=== PATIENT | male | born 1990 | race Caucasian/White ===

== ENCOUNTER 2016-10-19 18:48 | Emergency (ER) | payer SELFPAY ==
--- NOTE | 2016-10-19 19:00 | NUR ---
NO ANSWER IN ER LOBBY
--- NOTE | 2016-10-19 19:28 | NUR ---
PATIENT LEFT WITHOUT BEING SEEN BY DR. DOUGLAS. NO FURTHER CARE PROVIDED FOR PATIENT.
== END 2016-10-19 19:28 | disposition left against medical advice (07) ==
LOC: MED 18:48
DX: M79.673 Pain in unspecified foot (principal); Z53.21 Procedure and treatment not carried out due to patient leaving prior to being seen by health care provider

== ENCOUNTER 2016-10-19 20:17 | Emergency (ER) | payer SELFPAY ==
[~2016-10-19] VITALS: Ht 172.7 cm; Wt 77.6 kg
[2016-10-19 20:30] VITALS: BP 118/75
--- NOTE | 2016-10-19 21:32 | NUR ---
PT TAKEN TO OF2
--- NOTE | 2016-10-19 21:59 | NUR ---
Dr. Trujillo evaluating patient
--- NOTE | 2016-10-19 22:06 | NUR ---
PT TAKEN TO BED 7
[2016-10-19] MEDS ORDERED: LIDOCAINE 1% 500 MG/50 ML VIAL INJ ONE (22:10)
--- NOTE | 2016-10-19 22:11 | NUR ---
PT IS 26/M BIB SELF TO ED WITH C/O RT INGROWN TOE NAIL FOR 25 DAYS, WITH ON AND OFF PAIN AND REDNESS.PT STATES NO MED HX . DENIES N/V/D; SKIN IS WARM/DRY; AAOX4 WITH EVEN AND STEADY GAIT; LUNGS CLEAR BL; HR EVEN AND REGULAR; PT DENIES ANY FEVER, CP, SOB, OR COUGH AT THIS TIME; PATIENT STATES PAIN OF 10/10 AT THIS TIME; VSS; PATIENT POSITIONED FOR COMFORT; HOB ELEVATED; BEDRAILS UP X2; BED DOWN. ER MD MADE AWARE OF PT STATUS.
[2016-10-19 22:40] VITALS: BP 123/75
== END 2016-10-19 22:40 | disposition home or self-care (01) ==
LOC: MED 20:17
DX: L60.0 Ingrowing nail (principal)
CPT/HCPCS: 99283; J2001

== ENCOUNTER 2016-12-07 10:40 | Emergency (ER) | payer MEDICAID ==
[~2016-12-07] VITALS: Ht 172.7 cm; Wt 76.2 kg
[2016-12-07 10:50] VITALS: BP 124/67
--- NOTE | 2016-12-07 11:03 | NUR ---
Patient ambulated to bed 5. RN evaluating patient at bedside.
--- NOTE | 2016-12-07 11:06 | NUR ---
PATIENT PRESENTS TO ED WITH C/O SPIDER BITE; NO PAIN/BITE MISSY . PT STATES HE SAW A SPIDER IN HIS BAG;BUT AND KILLED IT BUT NOT SURE IF HE WAS BITTEN. DENIES N/V/D; SKIN IS PINK/WARM/DRY; AAOX4 WITH EVEN AND STEADY GAIT; LUNGS CLEAR BL; HR EVEN AND REGULAR; PT DENIES ANY FEVER, CP, SOB, OR COUGH AT THIS TIME; PATIENT STATES PAIN OF 0/10 AT THIS TIME; PATIENT POSITIONED FOR COMFORT; HOB ELEVATED; BEDRAILS UP X2; BED DOWN. ER MD NOTIFIED;
--- NOTE | 2016-12-07 11:07 | NUR ---
RICARDO CULLEN AT BEDSIDE.
[2016-12-07 11:17] VITALS: BP 124/67
--- NOTE | 2016-12-07 11:17 | NUR ---
Patient discharged with v/s stable. Written and verbal after care instructions given and explained. Patient verbalized understanding. Ambulatory with steady gait. All questions addressed prior to discharge. Advised to follow up with PMD.
== END 2016-12-07 11:17 | disposition home or self-care (01) ==
LOC: MED 10:40
DX: R50.9 Fever, unspecified (principal)
CPT/HCPCS: 99283

== ENCOUNTER 2016-12-26 20:14 | Emergency (ER) | payer MEDICAID ==
[~2016-12-26] VITALS: Ht 172.7 cm; Wt 81.2 kg
[2016-12-26 20:36] VITALS: BP 134/82
--- NOTE | 2016-12-26 22:09 | NUR ---
Patient to OF.
--- NOTE | 2016-12-26 22:28 | NUR ---
Dr. Trujillo evaluating patient.
[2016-12-26] MEDS ORDERED: IBUPROFEN 800 MG TAB PO ONE (22:35)
[2016-12-26 22:45] VITALS: BP 133/80
--- NOTE | 2016-12-26 22:45 | NUR ---
Patient discharged with v/s stable. Written and verbal after care instructions given and explained. Patient alert, oriented and verbalized understanding of instructions. Ambulatory with steady gait. All questions addressed prior to discharge. ID band removed. Patient advised to follow up with PMD. Rx of MOTIRN given. Patient educated on indication of medication including possible reaction and side effects. Opportunity to ask questions provided and answered.
== END 2016-12-26 22:45 | disposition home or self-care (01) ==
LOC: MED 20:14
DX: S90.32XA Contusion of left foot, initial encounter (principal); W22.8XXA Striking against or struck by other objects, initial encounter; Y93.01 Activity, walking, marching and hiking; Y92.89 Other specified places as the place of occurrence of the external cause; Y99.8 Other external cause status
CPT/HCPCS: 73630; 99284